=== PATIENT | male | born 1950 | race Caucasian/White ===

== ENCOUNTER 2018-10-23 01:51 | Outpatient (CLI) | payer MEDICARE, OTHER, SELFPAY ==
--- NOTE | 2018-10-23 10:45 | DI.MRI_ITS ---
SYMPTOMS/DIAGNOSIS: INSTABILITY OF RT SHOULDER JOINT, M25.211, RT SHOULDER PAIN AFTER INJURY, TOSSING BAG WITH REPORTED DISLOCATION, NOW INSTABILITY ANTERIORLY ON EXAM AND CATCHING CONSISTENT WITH LABRAL TEAR MRI OF THE RIGHT SHOULDER: Routine noncontrast examination. There is medial dislocation of the biceps tendon which shows thickening and intermediate signal. This may represent tendinosis or partial tear. There is some increased signal seen on the articular surface of the supraspinatus tendon at its insertion onto the greater tuberosity (series 6, image 11) suspicious for a partial tear. The infraspinatus and teres minor tendons are intact. There is abnormal signal seen in the subscapularis tendons suspicious for partial tear. The rotator cuff muscles show normal signal and size. No significant muscular fatty atrophy is present. The glenoid labrum is grossly unremarkable on this noncontrast examination. There is marrow edema seen in the humeral head laterally. Otherwise marrow signal is within normal limits. There is a small amount of fluid seen in the subacromial subdeltoid bursa. No soft tissue mass is appreciated. IMPRESSION: 1. Medial dislocation of the biceps tendon. Thickening and abnormal signal seen in the biceps tendon consistent with a partial tear or tendinosis. 2. Findings suggestive of a small articular surface tear of the supraspinatus tendon and a question of a subscapularis tendon tear. 3. Bone bruise involving the lateral aspect of the humeral head.
== END 2018-10-23 02:11 ==
PROVIDERS: PCP Family Medicine; Visit Provider Family Medicine
DX: M25.211 Flail joint, right shoulder (principal); M25.311 Other instability, right shoulder; M25.511 Pain in right shoulder; M75.101 Unspecified rotator cuff tear or rupture of right shoulder, not specified as traumatic; S46.201A Unspecified injury of muscle, fascia and tendon of other parts of biceps, right arm, initial encounter
CPT/HCPCS: 73221

== ENCOUNTER 2018-12-08 19:21 | Outpatient (REF) | payer MEDICARE, OTHER, SELFPAY ==
[2018-12-08 20:32] LABS: Anion Gap 11.1 mmol/L (3-11); BUN 16 mg/dL (7-18); CO2 27.9 mmol/L (21.0-32.0); Chloride 101 mmol/L (98-107); Glucose 107 mg/dL (70-100); Potassium 4.1 mmol/L (3.5-5.1); Sodium 140 mmol/L (136-145)
[2018-12-10 10:29] LABS: PSA, Screening 1.6 ng/ml (0-4.5)
== END 2018-12-08 19:41 ==
LOC: NCHCN 19:21
PROVIDERS: PCP Family Medicine; Visit Provider Family Medicine
DX: Z12.5 Encounter for screening for malignant neoplasm of prostate (principal); I10 Essential (primary) hypertension
CPT/HCPCS: 80048; 84153

== ENCOUNTER 2020-08-02 09:40 | Outpatient (REF) | payer MEDICARE, OTHER, SELFPAY ==
[2020-08-02 21:09] LABS: Anion Gap 10.9 mmol/L (3-11); BUN 17 mg/dL (7-18); CO2 26.1 mmol/L (21.0-32.0); CREATININE 1.22 mg/dL (0.70-1.30); Calcium 9.3 mg/dL (8.5-10.1); Calculated LDL 119 mg/dL (<100); Chloride 103 mmol/L (98-107); Cholesterol 207 mg/dL (<200); Estimated GFR 59.25 (mL/min/1.73m2); Glucose 124 mg/dL (74-106); HDL Cholesterol 56 mg/dL (40-60); Sodium 140 mmol/L (136-145); Triglyceride 160 mg/dL (<150)
== END 2020-08-02 10:00 ==
LOC: NCHCN 09:40
PROVIDERS: Visit Provider Family Medicine
DX: I10 Essential (primary) hypertension (principal); E78.5 Hyperlipidemia, unspecified
CPT/HCPCS: 80048; 80061

== ENCOUNTER 2021-10-29 18:38 | Outpatient (REF) | payer MEDICARE, OTHER, SELFPAY ==
[2021-10-29 20:06] LABS: Anion Gap 7.7 mmol/L (3-11); BUN 18 mg/dL (7-18); CO2 27.3 mmol/L (21.0-32.0); CREATININE 1.5 mg/dL (0.70-1.30); Chloride 105 mmol/L (98-107); Estimated GFR 46.54 (mL/min/1.73m2); Glucose 151 mg/dL (74-106); Magnesium 1.9 mg/dL (1.8-2.4); Potassium 3.9 mmol/L (3.5-5.1); Sodium 140 mmol/L (136-145)
== END 2021-10-29 18:39 | disposition home or self-care (01) ==
LOC: NCHCN 18:38
PROVIDERS: Visit Provider Family Medicine
DX: I10 Essential (primary) hypertension (principal)
CPT/HCPCS: 80048; 83735

== ENCOUNTER 2021-12-19 18:21 | Outpatient (REF) | payer MEDICARE, OTHER, SELFPAY ==
[2021-12-19 20:21] LABS: BUN 15 mg/dL (7-18); CREATININE 1.3 mg/dL (0.70-1.30); Calcium 9.1 mg/dL (8.5-10.1); Chloride 105 mmol/L (98-107); Estimated GFR 54.73 (mL/min/1.73m2); Glucose 92 mg/dL (74-106); Potassium 4.5 mmol/L (3.5-5.1); Sodium 141 mmol/L (136-145)
[2021-12-19 21:10] LABS: Bilirubin Negative (Negative); Blood Negative (Negative); Clarity Clear (Clear); Glucose Negative (Negative); Ketones Negative (Negative); Leukocyte Esterase Negative (Negative); Nitrite Negative (Negative); Specific Gravity 1.025 (1.005-1.025); Urobilinogen 0.2 EU/dL (Up TO 0.2)
== END 2021-12-19 18:22 | disposition home or self-care (01) ==
LOC: NCHCN 18:21
PROVIDERS: PCP Family Medicine; Visit Provider Family Medicine
DX: N28.9 Disorder of kidney and ureter, unspecified (principal)
CPT/HCPCS: 80048; 81003

== ENCOUNTER → 2021-12-31 14:51 | Outpatient (BNVA) | payer MEDICARE, OTHER, SELFPAY | PROVIDERS: PCP Family Medicine; Referring Provider Family Medicine; Visit Provider Surgery | DX: K21.9 Gastro-esophageal reflux disease without esophagitis (principal); R19.5 Other fecal abnormalities | CPT/HCPCS: 99202; 99203 ==

== ENCOUNTER 2022-01-07 02:44 | Outpatient (CLI) | payer MEDICARE, OTHER, SELFPAY ==
[2022-01-07 11:27] LABS: Source Nasal/Nares
[2022-01-07 13:39] LABS: COVID-19 PCR Negative (Negative)
== END 2022-01-07 02:45 | disposition home or self-care (01) ==
PROVIDERS: PCP Family Medicine; Visit Provider Surgery
DX: Z20.822 Contact with and (suspected) exposure to COVID-19 (principal); Z01.818 Encounter for other preprocedural examination
CPT/HCPCS: 87635; U0005

== ENCOUNTER 2022-01-08 11:24 | Day surgery (SDC) | payer MEDICARE, OTHER, SELFPAY ==
[2022-01-08 11:42] VITALS: BP 153/74; PULSE 75; RESP 18; TEMP 36.7; O2SAT 98
--- NOTE | 2022-01-08 11:45 | PDOC.DSDIS_ITS ---
Discharge Plan Disposition Patient Disposition: HOME Condition: Good Discharge Details Reason For Visit: colon scope Attending Provider: Herlinda Wolff Primary Care Provider: Carlos Marley Home Meds and New Rx's Prescriptions: Continued amlodipine 5 mg tablet 5 mg PO DAILY 0RF aspirin [Aspir-Low] 81 MG tablet,delayed release (DR/EC) 81 mg PO DAILY AM 0RF pantoprazole [Protonix] 40 MG tablet,delayed release (DR/EC) 40 mg PO DAILY AM 0RF simvastatin 40 MG tablet 40 mg PO DAILY 0RF Discontinued polyethylene glycol 3350 17 gram/dose powder 238 g PO ONCE Qty: 238 0RF Rx Instructions: take per colonoscopy instructions bisacodyl [Dulcolax (bisacodyl)] 5 mg tablet,delayed release (DR/EC) 5 mg PO ONCE Qty: 4 0RF Rx Instructions: take per colonoscopy instructions Discharge Instructions Additional Instructions: [facility] Colonoscopy Post- Op Instructions Instructions for Everyone who is given Anesthesia: For your safety, please do the following for the next twenty-four (24) hours: *Do Not operate a motor vehicle (car, truck, motorcycle, etc.) *Do Not drink alcoholic beverages or use any recreational drugs for the first 24 hours or while taking pain medications. The medications in your body may have a reaction that can be dangerous. *Do Not make any important decisions or sign any important papers. Findings: Severe diverticula Follow up: Incomplete colonoscopy. Will need to do a barium enema as outpatient 1. No lifting over 20 pounds or strenuous activity for the first 24 hours after your procedure. After 24 hours there are no restrictions on your activity but you may feel fatigued for a few days. 2. After you arrive home you may have a light meal and return to your normal diet as you can tolerate it without feeling sick to your stomach. 3. You may have a bloated, gaseous feeling in your belly (abdomen) after a colonoscopy. Passing gas and belching will help. Walking or lying down on your left side with your knees flexed may relieve the discomfort. Call the office at [phone] (Office) or [phone] (Hospital) right away if you notice any of the following: a.Vomiting of blood or ?coffee ground stools?. b.Rectal bleeding 1Tbsp, blood clots or continuous bleeding. c.Severe belly (abdominal) pain. d.A hard distended belly (abdomen) and an inability to pass gas. 4. Please don?t expect to have a normal BM (bowel movement) for 2-3 days after your procedure. 5. If there are questions regarding the findings of your procedure, please contact your doctor 6. If you are unable to contact your doctor with a problem, contact the hospital at [phone]. 7. Continue all your regular medications unless directed otherwise. I understand the above instructions and have no questions. Signature of Patient or Adult Escort Name of Responsible Adult Escort Signature of Nurse Date/Time Activity:: see above Diet:: see above Discharge Orders Discharge Orders: Discharge Order (Routine); Ordered 01/08/22 Ordered By: Herlinda Wolff
--- NOTE | 2022-01-08 11:46 | ANES.PREOP_ITS ---
General Info Date of Service Date Performed: 01/08/22 Height: 5 ft 9 in Weight: 83.3 kg Body Mass Index (BMI): 27.1 Surgical Procedure: Operation Date: 01/08/22 11:50 Proposed Procedure Side Surgeon noa Wolff DO Meds Allergies and Home Medications Allergies Allergy/AdvReac Type Severity Reaction Status Date / Time No Known Allergies Allergy Unverified 01/08/22 11:47 Home Medication Medication Instructions Recorded aspirin 81 mg tablet,delayed 81 mg PO DAILY AM 10/20/13 release (Aspir-Low) pantoprazole 40 mg tablet,delayed 40 mg PO DAILY AM 10/20/13 release (Protonix) simvastatin 40 mg tablet 40 mg PO DAILY 10/20/13 amlodipine 5 mg tablet 5 mg PO DAILY 12/31/21 Current Visit Medications: Current Medications Generic Name Dose Route Start Last Admin Trade Name Freq PRN Reason Stop Dose Admin Hyoscyamine Sulfate 0.125 mg 01/08/22 11:44 Hyoscyamine 0.125 Mg Sl/Oral/Chew SL DIRECTED PRN Ringer's Solution 1,000 mls @ 80 mls/hr 01/08/22 06:00 IV 01/17/22 23:59 INFUSION JAMIL IV Miscellaneous Supplies 1 each 01/08/22 06:00 Iv Access IV 01/17/22 23:59 DIRECTED JAMIL Ondansetron HCl 4 mg 01/08/22 11:44 Ondansetron 4 Mg/2 Ml Vial IVP Q4H PRN PRN Nausea / Vomiting Sodium Chloride 0 ml 01/08/22 06:00 Normal Saline Flush 10 Ml Syr IV 01/17/22 23:59 PRN PRN Sodium Chloride 0 ml 01/08/22 06:00 Normal Saline 10 Ml Vial IJ 01/17/22 23:59 DIRECTED PRN Sterile Water 0 ml 01/08/22 06:00 Water,Injection,Sterile 10 Ml Vial IJ 01/17/22 23:59 DIRECTED PRN PFSH Active Problems Active Problems: Problem Status Onset Code Heme positive stool R19.5 Renal insufficiency N28.9 Hypertension I10 Medical History Medical History GERD (gastroesophageal reflux disease) Gilbert's disease Hyperlipidemia Restless leg syndrome Vitamin D deficiency Surgical History Surgical History Hx of shoulder surgery Tobacco Smoking/Tobacco Use Status: Never Alcohol Alcohol Intake: current Alcohol intake frequency: a few times a week Alcohol t ype: beer, wine and hard liquor Substance Use Substance use: Never Substance use type: does not use Vital Signs and Lab Results Vital Signs Most Recent Vital Signs in EMR: Most Recent Vital Signs Temp Pulse Resp BP Pulse Ox 36.7 C 75 18 153/74 H 98 01/08/22 11:42 01/08/22 11:42 01/08/22 11:42 01/08/22 11:42 01/08/22 11:42 Lab Results Blood Type / Crossmatch: No Data to Display Complete Blood Count: No Data to Display Complete Metabolic Panel: Sodium Level 141 mmol/L (136-145) 12/19/21 15:30 12/19/21 Potassium Level 4.5 mmol/L (3.5-5.1) 12/19/21 15:30 12/19/21 Chloride Level 105 mmol/L (98-107) 12/19/21 15:30 12/19/21 Carbon Dioxide Level 28.0 mmol/L (21.0-32.0) 12/19/21 15:30 12/19/21 Blood Urea Nitrogen 15 mg/dL (7-18) 12/19/21 15:30 12/19/21 Creatinine 1.3 mg/dL (0.70-1.30) 12/19/21 15:30 12/19/21 Estimated GFR/1.73 m2 54.73 (mL/min/1.73m2) 12/19/21 15:30 12/19/21 Calcium Level 9.1 mg/dL (8.5-10.1) 12/19/21 15:30 12/19/21 Glucose Level 92 mg/dL (74-106) 12/19/21 15:30 12/19/21 Liver Function Panel: No Data to Display Coagulation Panel: 2 No Data to Display Cardiac Panel: No Data to Display Arterial Blood Gas: No Data to Display Venous Blood Gas: No Data to Display Pancreas Panel: No Data to Display Thyroid Panel: No Data to Display Infectious Disease: Coronavirus (COVID-19)(PCR) Negative (Negative) 01/07/22 08:26 01/07/22 Coronavirus 2019 Source Nasal/Nares 01/07/22 08:26 01/07/22 Blood Cultures: No Data to Display Toxicology Panel: No Data to Display Anesthesia Assessment and Plan Anesthesia History Personal History: No History of Anesthesia Complications Family History: No Family History of Anesthesia Complications Exercise Tolerance Exercise Tolerance: Metabolic Equivalents>4 Pertinent Negatives Pertinent Negatives: No Symptoms of GERD, No Major Cardiovascular Symptoms or Complaints, No Major Pulmonary Symptoms or Complaints and No History of CVA/TIA Cardiac & Pulmonary Exam Cardiac Exam: Normal S1/S2 Heart Sounds Pulmonary Exam: Clear Bilateral Breath Sounds Implantable Cardiac Device Does patient have a Pacemaker or an ICD?: No Airway Exam Known Difficult Airway: No Mallampati Class: 3 Mouth Opening: Normal (> 3cm) Thyromental Distance: Greater than 3 cm Neck Range of Motion: Full ROM Neck Circumference: Normal Teeth Condition: Normal Dentition Airway Comments: Top front teeth chipped ASA Classification ASA Score: ASA 2 Emergency Case?: No NPO Status NPO Status: NPO Clears >2 hours, Solids >8 hours Anesthesia Plan Resuscitation Status: Full Code Anesthesia Technique: General Anesthesia Airway Planned: Natural Airway Monitors Used: Standard Monitors
--- NOTE | 2022-01-08 11:47 | W.COLOREPORT ---
Colonoscopy Report Date of procedure: 01/08/22 Pre-op diagnosis general: Heme+ Post-op diagnosis procedure note: other (Severe diverticula/incomplete colonoscopy) Surgeon: Herlinda Wolff Anesthesia Type: General:No Airway Estimated blood loss (mL): 0 Pathology: none sent Complications: None Disposition: same day Prep: Miralax/Dulcolax Procedure Description: After informed consent was obtained the patient was taken to the procedure room and placed in a left decubitous position. Monitors were applied and a time out was done. The patients name, date of , procedure, allergies to medications and metal in their body was reviewed. The patient was then sedated. Once sedated and comfortable a rectal exam was done. External exam was normal. Internal exam revealed a normal sphincter tone and no palpable masses. The scope was then introduced and retrofelexed. No internal hemorrhoids were identified. The patient has severe diverticula. He also has very sharp turns in the sigmoid colon. I am unable to maneuver the scope past 30 cm. The procedure was abandoned for patient safety. He will need to go for outpatient barium enema for completeness of the procedure. The scope was removed and the patient was woken up and taken back to Same day surgery in stable condition. The patient tolerated the procedure well and there were no immediate complications. Follow up: Outpatient barium enema.
[2022-01-08 11:53] VITALS: BMI 27.1
[2022-01-08] MEDS: Lactated Ringers 1,000 ML 80 ML IV (11:57)
[2022-01-08 12:34] VITALS: BP 136/86; PULSE 85; RESP 22; TEMP 36.5; O2SAT 95
--- NOTE | 2022-01-08 12:36 | W.ANESPOSTOP ---
Postoperative Evaluation Date, Time and Location Date Performed: 01/08/22 Time Performed: 12:36 Patient Location: Day Surgery Unit Vital Signs Most Recent Imported Vital Signs: Most Recent Vital Signs Temp Pulse Resp BP Pulse Ox 36.7 C 75 18 153/74 H 98 01/08/22 11:42 01/08/22 11:42 01/08/22 11:42 01/08/22 11:42 01/08/22 11:42 Most Recent Manually Entered Vital Signs: Adult Blood Pressure: 136/86 Heart Rate: 88 Respirations: 12 Oxygen Saturation (%): 94 Temperature (C): 36.3 C Pain Score (0-10 Scale): 0 Pain Score Most Recent Pain Score: Most Recent Pain Score Pain Level 0 01/08/22 11:42 Assessment Mental Status: Awake (Alert & Oriented to Patient Baseline) Airway and Respiratory Function: Patent airway with normal (patient baseline) respiratory exam Cardiovascular Function: Hemodynamically Stable Hydration Status: Adequately Hydrated Nausea & Vomiting: No Nausea or Vomiting Pain: Pt. Denies Any Pain Peripheral Nerve Block: Patient did not receive a nerve block
[2022-01-08 12:37] VITALS: BP 136/86; PULSE 88; RESP 12; TEMPC 36.3; O2SAT 94
[2022-01-08 13:03] VITALS: BP 130/81; PULSE 76; RESP 17; TEMP 36.3; O2SAT 95
== END 2022-01-08 13:24 | disposition home or self-care (01) ==
PROVIDERS: PCP Family Medicine; Visit Provider Surgery
PROC: 0DJD8ZZ Inspection of Lower Intestinal Tract, Via Natural or Artificial Opening Endoscopic (ICD-10-PCS; CPT 45378; principal; 2022-01-08 11:45)
DX: R19.5 Other fecal abnormalities (principal); K57.30 Diverticulosis of large intestine without perforation or abscess without bleeding; E78.5 Hyperlipidemia, unspecified; E55.9 Vitamin D deficiency, unspecified; K21.9 Gastro-esophageal reflux disease without esophagitis; E80.4 Gilbert syndrome
CPT/HCPCS: 45330; J2001

== ENCOUNTER 2022-12-24 20:40 | Outpatient (REF) | payer MEDICARE, OTHER, SELFPAY ==
[2022-12-24 21:03] LABS: HCT 46.6 % (40.0-50.0); HGB 15.8 g/dL (13.5-17.5); MCH 30.7 pg (27.0-33.0); MCHC 33.9 % (32.0-36.0); MCV 91 fL (80-95); MPV 10.3 fL (8.0-11.0); Platelet Count 271 10^3/uL (130-400); RBC 5.15 10^6/uL (4.36-5.78); RDW 13.5 % (11.8-14.1); RDW-SD 44.6 fL
[2022-12-24 21:08] LABS: CREATININE 1.3 mg/dL (0.70-1.30)
== END 2022-12-24 20:41 | disposition home or self-care (01) ==
LOC: NCHCN 20:40
PROVIDERS: PCP Family Medicine; Visit Provider Family Medicine
DX: I10 Essential (primary) hypertension (principal); R19.5 Other fecal abnormalities
CPT/HCPCS: 85027; 82565

== ENCOUNTER 2024-08-23 10:25 | Outpatient (REF) | payer MEDICARE, OTHER, SELFPAY ==
[2024-08-23 14:32] LABS: HCT 43.3 % (40.0-50.0); HGB 14.5 g/dL (13.5-17.5); MCH 29.8 pg (27.0-33.0); MCHC 33.5 % (32.0-36.0); MCV 89 fL (80-95); MPV 9.7 fL (8.0-11.0); Platelet Count 264 10^3/uL (130-400); RBC 4.87 10^6/uL (4.36-5.78); RDW 13.3 % (11.8-14.1); RDW-SD 43.6 fL; WBC 5.42 10^3/uL (4.4-10.8)
[2024-08-23 14:57] LABS: ALT 29 U/L (16-63); AST 16 U/L (15-37); Albumin 4.1 g/dL (3.4-5.0); Alkaline Phosphatase 72 U/L (46-116); BUN 23 mg/dL (7-18); Bilirubin, Total 1.44 mg/dL (0.2-1.0); CREATININE 1.3 mg/dL (0.70-1.30); Calcium 9.3 mg/dL (8.5-10.1); Calculated LDL 101 mg/dL (<100); Chloride 107 mmol/L (98-107); Cholesterol 198 mg/dL (<200); Estimated GFR 58.73 (mL/min/1.73m2); Glucose 108 mg/dL (74-106); HDL Cholesterol 84 mg/dL (40-60); Potassium 4.4 mmol/L (3.5-5.1); Sodium 143 mmol/L (136-145); Triglyceride 67 mg/dL (<150)
== END 2024-08-23 10:26 | disposition home or self-care (01) ==
LOC: NCHCN 10:25
PROVIDERS: PCP Family Medicine; Visit Provider Physician Assistant
DX: E78.5 Hyperlipidemia, unspecified (principal); I10 Essential (primary) hypertension
CPT/HCPCS: 80053; 80061; 85027

== ENCOUNTER 2025-09-02 11:46 | Outpatient (REF) | payer MEDICARE, OTHER, SELFPAY ==
[2025-09-02 14:59] LABS: HCT 45.5 % (40.0-50.0); HGB 14.9 g/dL (13.5-17.5); MCH 29.7 pg (27.0-33.0); MCHC 32.7 % (32.0-36.0); MCV 91 fL (80-95); MPV 9.7 fL (8.0-11.0); Platelet Count 295 10^3/uL (130-400); RBC 5.01 10^6/uL (4.36-5.78); RDW 13.7 % (11.8-14.1); RDW-SD 46.2 fL; WBC 5.95 10^3/uL (4.4-10.8)
[2025-09-02 15:12] LABS: ALT 20 U/L (10-49); AST 20 U/L (<34); Albumin 4.3 g/dL (3.4-5.0); Alkaline Phosphatase 69 U/L (46-116); Anion Gap 8.8 mmol/L (3-11); BUN 15 mg/dL (9-23); Bilirubin, Total 0.90 mg/dL (0.2-1.2); CO2 27.2 mmol/L (20.0-31.0); Calcium 9.7 mg/dL (8.3-10.6); Chloride 107 mmol/L (98-107); Cholesterol 187 mg/dL (<200); Glucose 93 mg/dL (74-106); HDL Cholesterol 69 mg/dL (>40); Potassium 4.7 mmol/L (3.5-5.1); Sodium 143 mmol/L (136-145); Total Protein 6.8 g/dL (5.7-8.2)
[2025-09-02 15:20] LABS: Hemoglobin A1C 5.8 % (<5.7)
== END 2025-09-02 11:47 | disposition home or self-care (01) ==
LOC: NCHCN 11:46
PROVIDERS: PCP Family Medicine; Visit Provider Physician Assistant
DX: E78.5 Hyperlipidemia, unspecified (principal); Z13.1 Encounter for screening for diabetes mellitus; I10 Essential (primary) hypertension
CPT/HCPCS: 80053; 80061; 85027; 83036